=== PATIENT | male | born 1975 | race African-American/Black ===

== ENCOUNTER 2017-05-24 11:47 | Emergency (ER) | payer MEDICARE, OTHER ==
[~2017-05-24] VITALS: Ht 172.7 cm; Wt 88.9 kg
[2017-05-24 11:50] VITALS: BP 189/129
[2017-05-24] MEDS ORDERED: TRAM50TA PO (12:03)
[2017-05-24] MEDS ORDERED: LISI1TAB5 PO (12:03)
[2017-05-24] MEDS ORDERED: AMLO10TA2 PO (12:03)
[2017-05-24] MEDS ORDERED: NAPR500T8 PO (12:03)
[2017-05-24] MEDS ORDERED: OXYC-323 PO (12:03)
[2017-05-24] MEDS ORDERED: HYDR-2758 PO (13:38)
--- NOTE | 2017-05-24 13:38 | PHYS DOC ---
Past Medical History Past Medical History: Other Additional Past Medical Histor: SCIOLOSIS, MUSCLE DISEASE Past Surgical History: No Surgical History Alcohol Use: None Drug Use: None Adult General Chief Complaint Chief Complaint: KNEE SWELLING [facility] HPI Patient is a pleasant 42-year-old male with a history of scoliosis and peripheral myositis presents with nontraumatic knee pain began yesterday. It is focally tender over the lateral aspect of the left knee on the areas no trauma. No fevers no chills or change in skin color no redness just localized swelling he perceives. He denies a prior injury to same day before. Patient denies any numbness and tingling below the joint. This pain is worse with walking or direct pressure over this area of swelling in his knee. Pain is described as a throbbing 6 at 10 at rest 10 of 10 with movement. he has tried Naprosyn and T3' s with minimal improvement. Review of Systems Review of Systems Constitutional: Denies fever or chills [] Eyes: Denies change in visual acuity, redness, or eye pain [] HENT: Denies nasal congestion or sore throat [] Respiratory: Denies cough or shortness of breath [] Cardiovascular: No additional information not addressed in HPI [] GI: Denies abdominal pain, nausea, vomiting, bloody stools or diarrhea [] : Denies dysuria or hematuria [] Musculoskeletal: he complains of right knee pain Integument: Denies rash or skin lesions [] Neurologic: Denies headache, focal weakness or sensory changes [] Endocrine: Denies polyuria or polydipsia [] Allergies Allergies Allergies Coded Allergies Type Severity Reaction Last Updated Verified No Known Drug Allergies 05/24/17 No Physical Exam Physical Exam Constitutional: Well developed, well nourished, no acute distress, non-toxic appearance. [] Cardiovascular:Heart rate regular rhythm, no murmur [] Lungs & Thorax: Bilateral breath sounds clear to auscultation [] Skin: Warm, dry, no erythema, no rash. [] Extremities: Has focal tenderness palpation of the lateral aspect of the patella with no evidence of soft tissue swelling is negative anterior posterior draw, negative warmth to the skin itself no evidence of soft tissue swelling even when compared to the other knee. No effusion in the joint. Neurologic: Alert and oriented X 3, normal motor function, normal sensory function, no focal deficits noted. [] Psychologic: Affect normal, judgement normal, mood normal. [] Current Patient Data Vital Signs Vital Signs Date Time Temp Pulse Resp B/P (MAP) Pulse Ox O2 Delivery O2 Flow Rate FiO2 05/24/17 11:50 98.3 78 18 189/129 (149) 97 Room Air 98.3 EKG EKG [] Radiology/Procedures Radiology/Procedures [] Course & Med Decision Making Course & Med Decision Making Pertinent Labs and Imaging studies reviewed. (See chart for details) he presents with nontraumatic lateral knee pain likely bursitis versus local tendinitis the patella. There is no evidence or need for x-rays at this time. Patient has pain is reproduced by exam with no warmth doubt septic joint. Patient has a history of myositis but this is clearly muscular skeletal on the lateral aspect of the patella there is no bony tenderness to palpation along the patella itself just lateral to it. Patient admits he just for improved pain control as well as the T3 is taking. Impression: Knee pain unclear etiology possible tendinitis. [] Dragon Disclaimer Dragon Disclaimer This electronic medical record was generated, in whole or in part, using a voice recognition dictation system. Departure Departure Impression: Primary Impression: Tendinitis Disposition: 01 HOME, SELF-CARE Condition: STABLE Referrals: NON,STAFF (PCP) Patient Instructions: Tendinitis Additional Instructions: These return for any new or increasing symptoms or any question concerns. Scripts Hydrocodone Bit/Acetaminophen (HYDROCODONE-APAP 5-325 ) 1 Each Tablet 1-2 TAB PO PRN Q6HRS Y for PAIN for 5 Days, #10 TAB 0 Refills Prov: MELISSA TAVERAS MD 05/24/17 MELISSA TAVERAS MD May 24, 2017 13:38
== END 2017-05-24 14:01 | disposition home or self-care (01) ==
LOC: ER 11:47
DX: M77.9 Enthesopathy, unspecified (principal); M41.9 Scoliosis, unspecified
CPT/HCPCS: 99283

== ENCOUNTER 2017-11-15 11:30 | Emergency (ER) | payer MEDICARE, OTHER ==
[2017-11-15 12:50] LABS: INFLUENZA A PATIENT NEGATIVE (NEGATIVE)
[2017-11-15 12:52] LABS: INFLUENZA B PATIENT POSITIVE (NEGATIVE); OBC FLU VALID
== END 2017-11-15 13:36 | disposition home or self-care (01) ==
LOC: ER 11:30
DX: J09.X2 Influenza due to identified novel influenza A virus with other respiratory manifestations (principal); F12.10 Cannabis abuse, uncomplicated
CPT/HCPCS: 87804; 87804-59; 99284